=== PATIENT | male | born 1995 | race Hispanic/Latino ===

== ENCOUNTER 2017-09-22 03:31 | Emergency (ER) | payer OTHER ==
[2017-09-22 03:40] VITALS: TEMP 97.9; BMI 19.9
[2017-09-22] MEDS ORDERED: Sodium Chloride 0.9% 1,000 ML IV STA (03:47)
[2017-09-22 03:49] VITALS: RESP 16
[2017-09-22 04:20] LABS: BASO # 0.1 K/uL (0.0-0.2); BASO % 1.2 % (0.0-2.0); EOS # 0.1 K/uL (0.0-0.7); EOS % 1.4 % (0.0-4.0); HEMOGLOBIN 15.3 g/dL (12.0-18.0); LYMPH # 2.3 K/uL (1.0-4.3); LYMPH % 31.7 % (20.0-40.0); MEAN CELL VOLUME 92.8 fl (80.0-94.0); MEAN CORPUSCULAR HGB CONC 34.5 g/dL (33.0-37.0); MEAN PLATELET VOLUME 11.1 fl (7.2-11.7); MONO # 0.7 K/uL (0.0-0.8); MONO % 8.9 % (0.0-10.0); NEUT # 4.1 K/uL (1.8-7.0); NEUT % 56.8 % (50.0-75.0); NRBC % 0.2 % (0.0-0.0); RBC 4.77 Mil/uL (4.40-5.90); RED CELL DISTRIBUTION WIDTH 13.1 % (11.5-14.5); WHITE BLOOD COUNT 7.3 K/uL (4.8-10.8)
[2017-09-22 04:30] LABS: ALB/GLOB RATIO 1.6 (1.0-2.1); ALBUMIN 4.4 g/dL (3.5-5.0); ALT/SGPT 46 U/L (21-72); AST/SGOT 29 U/L (17-59); BLOOD UREA NITROGEN 14 mg/dl (9-20); CALCIUM 8.9 mg/dL (8.4-10.2); GFR AFRICAN-AMERICAN > 60; GFR NON-AFRICAN AMERICAN > 60
--- NOTE | 2017-09-22 04:54 | ED PDOC ---
HPI: Psych/Substance Abuse Time Seen by Provider: 09/22/17 03:46 Chief Complaint (Nursing): Alcohol Ingestion Chief Complaint (Provider): Alcohol intoxication ED Caveat: Intoxicated History Per: EMS History/Exam Limitations: intoxication Additional Complaint(s): 22yo male, brought to ER by EMS for evaluation after patient was found publicly intoxicated. A full HPI and ROS is unavailable as patient is intoxicated. Past Medical History Reviewed: Historical Data, Nursing Documentation, Vital Signs Vital Signs: Last Vital Signs Temp 97.9 F 09/22/17 03:39 Pulse 69 09/22/17 03:49 Resp 16 09/22/17 03:49 BP 119/74 09/22/17 03:49 Pulse Ox 97 09/22/17 03:49 - Medical History PMH: No Chronic Diseases - Surgical History Surgical History: No Surg Hx - Family History Family History: States: No Known Family Hx - Allergies Allergies/Adverse Reactions: Allergies Allergy/AdvReac Type Severity Reaction Status Date / Time No Known Allergies Allergy Verified 09/22/17 03:41 Review of Systems Review Of Systems: ROS cannot be obtained secondary to pt's inabilty to answer questions. (intoxicated) Physical Exam - Reviewed Nursing Documentation Reviewed: Yes Vital Signs Reviewed: Yes - Physical Exam Appears: Positive for: No Acute Distress Head Exam: Positive for: ATRAUMATIC, NORMAL INSPECTION, NORMOCEPHALIC Skin: Positive for: Normal Color Neck: Positive for: Supple Cardiovascular/Chest: Positive for: Regular Rate, Rhythm Respiratory: Positive for: Normal Breath Sounds. Negative for: Respiratory Distress Neurologic/Psych: Positive for: Gait (unsteady), Other (slurred speech) - Laboratory Results Result Diagrams: 09/22/17 04:07 09/22/17 04:07 - ECG O2 Sat by Pulse Oximetry: 97 (RA) Pulse Ox Interpretation: Normal Medical Decision Making Medical Decision Making: Impression: Alcohol intoxication Plan: -- Labs -- IV Fluids -- Zofran 4mg IV Time: 0650 Labs reviewed and within normal limits. Patient to be signed out to Dr. Covington pending clinical sobriety and disposition. Scribe Attestation: Documented by Criss Aguirre acting as a scribe for Audi Singleton MD. Provider Attestation: All medical record entries made by the Scribe were at my direction and personally dictated by me. I have reviewed the chart and agree that the record accurately reflects my personal performance of the history, physical exam, medical decision making, and the department course for this patient. I have also personally directed, reviewed, and agree with the discharge instructions and disposition. Disposition - Clinical Impression Clinical Impression: Alcohol abuse with intoxication - Patient ED Disposition Is Patient to be Admitted: Transfer of Care - Disposition Referrals: [facility] [Outside] Disposition: Transfer of Care Disposition Time: 06:50 Condition: IMPROVED Instructions: Alcohol Abuse and Alcoholism (DC) Forms: Answer.To (Croatian) Patient Signed Over To: Luz Covington Handoff Comments: pending sobriety, reeval, dispo
[2017-09-22] MEDS ORDERED: Potassium Chloride 20 mEq ER Tab PO STA ×2 (07:33→09:11)
[2017-09-22 11:09] VITALS: BP 100/57; PULSE 95
[2017-09-22] MEDS ORDERED: Potassium Chloride 20 mEq ER Tab PO ONE (11:22)
--- NOTE | 2017-09-22 11:29 | ED PDOC ---
- Laboratory Results Result Diagrams: 09/22/17 04:07 09/22/17 04:07 - ECG O2 Sat by Pulse Oximetry: 98 (RA) Pulse Ox Interpretation: Normal Medical Decision Making Medical Decision Making: Time: 1128 Patient is alert, oriented, and has a steady gait. Clinical Impression: Alcohol abuse with intoxication Upon provider evaluation patient is medically stable, and requires no further treatment in the ED at this time. Patient will be discharged. Counseling was provided and all questions were answered regarding diagnosis and need for follow up with PMD. There is agreement to discharge plan. Return if symptoms persist or worsen. Scribe Attestation: Documented by Roni Grewal, acting as a scribe for Luz Covington MD Provider Scribe Attestation: All medical record entries made by the Scribe were at my direction and personally dictated by me. I have reviewed the chart and agree that the record accurately reflects my personal performance of the history, physical exam, medical decision making, and the department course for this patient. I have also personally directed, reviewed, and agree with the discharge instructions and disposition. Disposition - Clinical Impression Clinical Impression: Alcohol abuse with intoxication - POA Present On Arrival: None - Disposition Referrals: [facility] [Outside] Disposition: Routine/Home Disposition Time: 11:28 Condition: IMPROVED Instructions: Alcohol Abuse and Alcoholism (DC) Forms: [employer] ([place]) Addendum Addendum: 09/22/17 07:[address] Pt signed out by Dr[address] Singleton pending labs.
[2017-09-24 05:55] VITALS: O2SAT 97
== END 2017-09-22 12:08 | disposition home or self-care (01) ==
LOC: H.ER 03:31
DX: F10.129 Alcohol abuse with intoxication, unspecified (principal)